=== PATIENT | male | born 1950 | race Caucasian/White ===

== ENCOUNTER 2020-12-29 19:43 | Inpatient (IN) | payer OTHER ==
[2020-12-29 21:18] LABS: BASO % 1.3 % (0-2.0); EOS % 2.4 % (0-4.5); HEMOGLOBIN 14.9 GM/dL (11.7-16.9); LYMPH % 33.8 % (8-40); MCHC 35.5 g/dl (32.0-35.9); MEAN CELL VOLUME 90.4 fl (80-96); MONO % 7.6 % (3.8-10.2); NEUT % 54.9 % (42.8-82.8); PLATELET COUNT 259 10^3/uL (134-434); RBC 4.65 M/mm3 (4.00-5.60); RDW 12.7 % (11.9-15.9); WHITE BLOOD COUNT 9.7 K/mm3 (4.0-10.0)
[2020-12-29 21:31] LABS: INR 1.07 (0.83-1.09); PROTHROMBIN TIME (PATIENT) 12.9 SEC (9.7-13.0)
[2020-12-29 21:34] LABS: ACTIVATED PTT 28.6 SECONDS (25.2-36.5)
[2020-12-29 21:46] LABS: BLOOD UREA NITROGEN 16.3 mg/dL (7-18); CALCIUM 9.4 mg/dL (8.5-10.1)
[2020-12-29 21:47] LABS: ALBUMIN 4.1 g/dl (3.4-5.0)
[2020-12-29 21:49] LABS: CREATININE 1.1 mg/dL (0.55-1.3)
[2020-12-29 21:51] LABS: BILIRUBIN,TOTAL 0.3 mg/dL (0.2-1); TOT PROT 8.2 g/dl (6.4-8.2)
[2020-12-29] MEDS ORDERED: ENOXAPARIN NA (PORCINE) 40 MG/0.4 ML DISP.SYRIN SQ ONE (22:42)
[2020-12-29] MEDS ORDERED: ENOXAPARIN NA (PORCINE) 100 MG/1 ML DISP.SYRIN SQ ONE (22:53)
[2020-12-30] MEDS ORDERED: HEPARIN NA (PORCINE) 5,000 UNITS/ML 1ML VIAL IVPUSH ONE (00:21)
[2020-12-30] MEDS ORDERED: HEPARIN NA (PORCINE) 5,000 UNITS/ML 1ML VIAL IVPUSH PRN ×2 (00:21)
[2020-12-30] MEDS ORDERED: HEPARIN INFUSION - 25,000 UNITS/500 ML INFUS.BAG IVPB SCH ×2 (00:30→14:15)
[2020-12-30 07:15] LABS: BASO % 0.9 % (0-2.0); HEMOGLOBIN 13.6 GM/dL (11.7-16.9); LYMPH % 34.5 % (8-40); MCH 32.2 pg (25.7-33.7); MCHC 35.7 g/dl (32.0-35.9); MEAN CELL VOLUME 90.3 fl (80-96); MEAN PLT VOLUME 10.5 fl (7.5-11.1); MONO % 6.7 % (3.8-10.2); NEUT % 54.9 % (42.8-82.8); PLATELET COUNT 226 10^3/uL (134-434); RBC 4.21 M/mm3 (4.00-5.60); RDW 12.5 % (11.9-15.9); WHITE BLOOD COUNT 9.6 K/mm3 (4.0-10.0)
[2020-12-30 07:54] LABS: ALBUMIN 3.5 g/dl (3.4-5.0); BILIRUBIN,TOTAL 0.5 mg/dL (0.2-1); BLOOD UREA NITROGEN 14.8 mg/dL (7-18); CALCIUM 8.9 mg/dL (8.5-10.1); CREATININE 0.8 mg/dL (0.55-1.3); MAGNESIUM 1.9 mg/dL (1.8-2.4); N-TERMINAL BNP 311.9 pg/ml (5-125); PHOSPHOROUS 2.8 mg/dL (2.5-4.9); TOT PROT 7.1 g/dl (6.4-8.2)
[2020-12-30] MEDS: PHENYTOIN NA EXTENDED 100 MG CAPSULE (FP) PO SCH (10:08)
[2020-12-30] MEDS: MUPIROCIN 2% TOPICAL OINTMENT FOR DECOLONIZATION NS SCH ×2 (10:34→22:27)
[2020-12-30] MEDS ORDERED: SODIUM CHLORIDE IVPB ONE (12:15)
[2020-12-30] MEDS ORDERED: ALTEPLASE 50MG 50 MG in SODIUM CHLORIDE 500 ML IVPB ONE (12:15)
[2020-12-30] MEDS ORDERED: ALTEPLASE IVPB ONE (12:15)
[2020-12-30] MEDS: HEPARIN INFUSION - 25,000 UNITS/500 ML INFUS.BAG IVPB SCH (14:15)
[2020-12-30] MEDS ORDERED: LABETALOL HCL 5 MG/1 ML (100MG/20 ML VIAL) IVPUSH PRN (20:07)
[2020-12-30] MEDS ORDERED: ACETAMINOPHEN 325 MG TABLET (FP) PO PRN (20:08)
[2020-12-30] MEDS ORDERED: ACETAMINOPHEN 1000 MG/100 ML VIAL (NON FORMULARY) IVPB ONE (22:00)
[2020-12-30] MEDS: CHLORHEXIDINE GLUCONATE 4% CLEANSER FOR DECOLONIZATION TP SCH (22:27)
[2020-12-31 07:31] LABS: BASO % 0.9 % (0-2.0); EOS % 2.1 % (0-4.5); HEMATOCRIT 40.9 % (35.4-49); HEMOGLOBIN 14.4 GM/dL (11.7-16.9); LYMPH % 22.9 % (8-40); MCH 31.8 pg (25.7-33.7); MCHC 35.2 g/dl (32.0-35.9); MEAN CELL VOLUME 90.6 fl (80-96); MEAN PLT VOLUME 9.9 fl (7.5-11.1); MONO % 7.9 % (3.8-10.2); NEUT % 66.2 % (42.8-82.8); PLATELET COUNT 207 10^3/uL (134-434); RBC 4.52 M/mm3 (4.00-5.60); RDW 12.7 % (11.9-15.9); WHITE BLOOD COUNT 8.3 K/mm3 (4.0-10.0)
[2020-12-31 07:52] LABS: ALBUMIN 3.5 g/dl (3.4-5.0); BLOOD UREA NITROGEN 20.2 mg/dL (7-18); CALCIUM 8.9 mg/dL (8.5-10.1); MAGNESIUM 2.1 mg/dL (1.8-2.4)
[2020-12-31 07:55] LABS: CREATININE 0.8 mg/dL (0.55-1.3); PHOSPHOROUS 2.9 mg/dL (2.5-4.9)
[2020-12-31 07:57] LABS: BILIRUBIN,TOTAL 0.4 mg/dL (0.2-1)
[2020-12-31] MEDS: PHENYTOIN NA EXTENDED 100 MG CAPSULE (FP) PO SCH (09:20)
[2020-12-31] MEDS: MUPIROCIN 2% TOPICAL OINTMENT FOR DECOLONIZATION NS SCH ×2 (09:28→21:34)
[2020-12-31] MEDS: INSULIN SLIDING SCALE (NOVOLOG) 1 VIAL SQ SCH ×3 (12:21→21:35)
[2020-12-31 13:37] VITALS: BMI 27.3
[2020-12-31] MEDS ORDERED: HEPARIN NA (PORCINE) 5,000 UNITS/ML 1ML VIAL IVPUSH PRN ×4 (15:52→17:16)
[2020-12-31] MEDS: HEPARIN INFUSION - 25,000 UNITS/500 ML INFUS.BAG IVPB SCH ×2 (16:00→17:54)
[2020-12-31] MEDS ORDERED: HEPARIN INFUSION - 500 ML IV SCH (17:30)
[2020-12-31] MEDS ORDERED: PT OWN MED DRAWER 7, Y5N ONE (21:21)
[2020-12-31] MEDS: CHLORHEXIDINE GLUCONATE 4% CLEANSER FOR DECOLONIZATION TP SCH (21:34)
[2021-01-01] MEDS: INSULIN SLIDING SCALE (NOVOLOG) 1 VIAL SQ SCH ×3 (06:54→17:03)
[2021-01-01 07:12] LABS: HEMOGLOBIN 14.2 GM/dL (11.7-16.9); MCHC 35.5 g/dl (32.0-35.9); MEAN CELL VOLUME 90.2 fl (80-96); MEAN PLT VOLUME 10.2 fl (7.5-11.1); PLATELET COUNT 185 10^3/uL (134-434); RBC 4.44 M/mm3 (4.00-5.60); RDW 12.5 % (11.9-15.9); WHITE BLOOD COUNT 9.1 K/mm3 (4.0-10.0)
[2021-01-01 07:41] LABS: ALBUMIN 3.4 g/dl (3.4-5.0); BLOOD UREA NITROGEN 20.5 mg/dL (7-18); CALCIUM 8.8 mg/dL (8.5-10.1)
[2021-01-01 07:42] LABS: MAGNESIUM 1.9 mg/dL (1.8-2.4)
[2021-01-01 07:44] LABS: CREATININE 0.9 mg/dL (0.55-1.3); PHOSPHOROUS 2.9 mg/dL (2.5-4.9)
[2021-01-01 07:45] LABS: BILIRUBIN,TOTAL 0.6 mg/dL (0.2-1); TOT PROT 6.9 g/dl (6.4-8.2)
[2021-01-01] MEDS: PHENYTOIN NA EXTENDED 100 MG CAPSULE (FP) PO SCH (10:06)
[2021-01-01] MEDS: MUPIROCIN 2% TOPICAL OINTMENT FOR DECOLONIZATION NS SCH (10:26)
[2021-01-01] MEDS: APIXABAN 5 MG TABLET PO SCH ×2 (11:06→11:07)
[2021-01-01] MEDS: HEPARIN INFUSION - 25,000 UNITS/500 ML INFUS.BAG IVPB SCH (11:29)
[2021-01-01 15:26] VITALS: BP 126/76; PULSE 76; TEMP 98.1
== END 2021-01-01 17:20 | disposition home or self-care (01) | DRG 164 ==
LOC: JER 19:43 → JERBED 22:33 → JICU 12-30 01:42
PROVIDERS: ADMIT Internal Medicine; ATTEND Internal Medicine
PROC: 02CR3ZZ Extirpation of Matter from Left Pulmonary Artery, Percutaneous Approach (ICD-10-PCS; principal; 2020-12-31)
PROC: 02CQ3ZZ Extirpation of Matter from Right Pulmonary Artery, Percutaneous Approach (ICD-10-PCS; 2020-12-31)
PROC: 3E03317 Introduction of Other Thrombolytic into Peripheral Vein, Percutaneous Approach (ICD-10-PCS; 2020-12-31)
DX: I26.02 Saddle embolus of pulmonary artery with acute cor pulmonale (principal); I82.4Z2 Acute embolism and thrombosis of unspecified deep veins of left distal lower extremity; I10 Essential (primary) hypertension; E78.5 Hyperlipidemia, unspecified; G40.909 Epilepsy, unspecified, not intractable, without status epilepticus; E11.65 Type 2 diabetes mellitus with hyperglycemia; I51.89 Other ill-defined heart diseases
CPT/HCPCS: 36415; 37184; 37187; 37212; 71275-TC; 75746-TC-FY; 80053; 82272; 82550; 82962; 83735; 83880; 84100; 84484; 85025; 85027; 85610; 85730; 93005; 93010; 93306-TC; 93970-TC; 97116-GP; 97161-GP; 99285-25; C9803; J0131; J1644; J2997; Q9967; U0003; U0005

== ENCOUNTER 2024-01-18 10:48 | Observation (INO) | payer OTHER ==
[2024-01-18] MEDS ORDERED: AMPICILLIN NA/SULBACTAM NA 3 GM/100 ML BAG IVPB ONE (11:47)
[2024-01-18 12:04] LABS: BASO % 0.8 % (0-2.0); EOS % 2.2 % (0-4.5); HEMATOCRIT 36.2 % (35.4-49); HEMOGLOBIN 12.4 GM/dL (11.7-16.9); MCH 31.7 pg (25.7-33.7); MCHC 34.3 g/dl (32.0-35.9); MEAN CELL VOLUME 92.4 fl (80-96); MEAN PLT VOLUME 9.5 fl (7.5-11.1); PLATELET COUNT 238 10^3/uL (134-434); RBC 3.92 M/mm3 (4.00-5.60); WHITE BLOOD COUNT 8.2 K/mm3 (4.0-10.0)
[2024-01-18] MEDS: AMPICILLIN NA/SULBACTAM NA 3 GM in SODIUM CHLORIDE 100 ML IVPB ONE (12:08)
[2024-01-18] MEDS: VANCOMYCIN HCL 1,500 MG in DEXTROSE 5%-WATER - 500 ML IVPB ONE (12:08)
[2024-01-18 12:27] LABS: POTASSIUM 4.7 mmol/L (3.5-5.1)
[2024-01-18 12:28] LABS: CALCIUM 9.4 mg/dL (8.5-10.1)
[2024-01-18 12:29] LABS: ALBUMIN 3.5 g/dl (3.4-5.0); BLOOD UREA NITROGEN 23.6 mg/dL (7-18)
[2024-01-18 12:34] LABS: BILIRUBIN,TOTAL 0.3 mg/dL (0.2-1); TOT PROT 7.1 g/dl (6.4-8.2)
[2024-01-18 12:45] LABS: ERYTHROCYTE SEDIMENTATION RATE 34 mm/hr (0-20)
[2024-01-18] MEDS: VANCOMYCIN PREMIX 1.5 GM 1,500 MG/300 ML BAG IVPB ONE (13:10)
[2024-01-18] MEDS: SODIUM CHLORIDE 1,000 ML IV STA (17:03)
[2024-01-18] MEDS: INSULIN ASPART SLIDING SCALE (NOVOLOG) 1 VIAL SQ SCH (17:04)
[2024-01-18] MEDS ORDERED: ceFAZolin SODIUM 1 GM VIAL ONE (18:08)
[2024-01-18] MEDS: CEFAZOLIN SODIUM 2 GM in DEXTROSE 5%-WATER 100 ML IVPB SCH (18:15)
[2024-01-18] MEDS ORDERED: APIXABAN 2.5 MG TABLET ONE (20:57)
[2024-01-18] MEDS ORDERED: PHENYTOIN NA EXTENDED 100 MG CAPSULE (FP) ONE (20:57)
[2024-01-18] MEDS: PHENYTOIN NA EXTENDED 100 MG CAPSULE (FP) PO SCH (21:00)
[2024-01-18] MEDS: APIXABAN 2.5 MG TABLET PO SCH (21:00)
[2024-01-19] MEDS: ACETAMINOPHEN 1000 MG/100 ML BAG IVPB PRN (00:42)
[2024-01-19 01:34] VITALS: BMI 27.1
[2024-01-19] MEDS ORDERED: PHENYTOIN NA EXTENDED 100 MG CAPSULE (FP) PO SCH (10:00)
[2024-01-19] MEDS: amLODIPine BESYLATE 5 MG TABLET (FP) PO SCH (10:03)
[2024-01-19] MEDS: PHENYTOIN NA EXTENDED 100 MG CAPSULE (FP) PO SCH (10:06)
[2024-01-19 10:11] LABS: HEMOGLOBIN 13.2 GM/dL (11.7-16.9); MCH 31.9 pg (25.7-33.7); MCHC 34.7 g/dl (32.0-35.9); MEAN CELL VOLUME 91.9 fl (80-96); MEAN PLT VOLUME 9.9 fl (7.5-11.1); PLATELET COUNT 264 10^3/uL (134-434); RBC 4.14 M/mm3 (4.00-5.60); WHITE BLOOD COUNT 8.1 K/mm3 (4.0-10.0)
[2024-01-19 10:23] LABS: POTASSIUM 4.6 mmol/L (3.5-5.1)
[2024-01-19 10:27] LABS: ALBUMIN 3.5 g/dl (3.4-5.0); BLOOD UREA NITROGEN 17.3 mg/dL (7-18); CALCIUM 9.7 mg/dL (8.5-10.1)
[2024-01-19 10:32] LABS: BILIRUBIN,TOTAL 0.4 mg/dL (0.2-1); TOT PROT 7.2 g/dl (6.4-8.2)
[2024-01-19] MEDS: INSULIN (LEVEMIR) 100 UNITS/ML UNITS SQ SCH (21:30)
[2024-01-20 10:50] VITALS: BP 146/69; PULSE 77; RESP 20; TEMP 98.2
[2024-01-20 12:21] LABS: BASO % 0.7 % (0-2.0); EOS % 3.8 % (0-4.5); HEMOGLOBIN 13.1 GM/dL (11.7-16.9); LYMPH % 23.1 % (8-40); MCH 31.2 pg (25.7-33.7); MCHC 33.7 g/dl (32.0-35.9); MEAN CELL VOLUME 92.8 fl (80-96); MEAN PLT VOLUME 9.8 fl (7.5-11.1); MONO % 7.2 % (3.8-10.2); NEUT % 65.2 % (42.8-82.8); PLATELET COUNT 277 10^3/uL (134-434); RDW 13.4 % (11.9-15.9); WHITE BLOOD COUNT 9.4 K/mm3 (4.0-10.0)
[2024-01-20 12:47] LABS: POTASSIUM 4.5 mmol/L (3.5-5.1)
[2024-01-20 12:49] LABS: CALCIUM 9.3 mg/dL (8.5-10.1)
[2024-01-20 12:50] LABS: ALBUMIN 3.3 g/dl (3.4-5.0); BLOOD UREA NITROGEN 23.6 mg/dL (7-18); MAGNESIUM 2.1 mg/dL (1.8-2.4)
[2024-01-20 12:53] LABS: CREATININE 1.1 mg/dL (0.55-1.3); PHOSPHOROUS 3.2 mg/dL (2.5-4.9)
[2024-01-20 12:54] LABS: BILIRUBIN,TOTAL 0.2 mg/dL (0.2-1)
[2024-01-20 12:55] LABS: TOT PROT 6.9 g/dl (6.4-8.2)
== END 2024-01-20 17:02 | disposition home or self-care (01) ==
LOC: JER 10:48 → INTOOBSV 14:16 → UNDOADMOB 14:16 → JERBED 14:16 → J5S 01-19 00:26 → JERBED 01-19 09:40 → J5S 01-19 09:40
PROVIDERS: ADMIT Internal Medicine; ATTEND Internal Medicine
PROC: 3E033NZ Introduction of Analgesics, Hypnotics, Sedatives into Peripheral Vein, Percutaneous Approach (ICD-10-PCS; principal; 2024-01-19)
PROC: 3E03329 Introduction of Other Anti-infective into Peripheral Vein, Percutaneous Approach (ICD-10-PCS; 2024-01-19)
PROC: 3E013VG Introduction of Insulin into Subcutaneous Tissue, Percutaneous Approach (ICD-10-PCS; 2024-01-19)
PROC: 3E0337Z Introduction of Electrolytic and Water Balance Substance into Peripheral Vein, Percutaneous Approach (ICD-10-PCS; 2024-01-19)
DX: E11.622 Type 2 diabetes mellitus with other skin ulcer (principal); L03.115 Cellulitis of right lower limb; I10 Essential (primary) hypertension; E78.5 Hyperlipidemia, unspecified; R56.9 Unspecified convulsions; Z86.718 Personal history of other venous thrombosis and embolism; M19.90 Unspecified osteoarthritis, unspecified site; Z87.891 Personal history of nicotine dependence; Z79.01 Long term (current) use of anticoagulants; Z88.5 Allergy status to narcotic agent; Z90.49 Acquired absence of other specified parts of digestive tract; L98.499 Non-pressure chronic ulcer of skin of other sites with unspecified severity
CPT/HCPCS: 0241U-QW; 36415; 73660-TC-FY; 73718-TC-RT; 78315-TC; 80053; 80061; 82962; 83036; 83735; 84100; 85025; 85027; 85651; 86140; 93926-TC; 96361; 96365; 96367; 96372; 96375; 99285-25; A9503; G0378; J0131

== ENCOUNTER 2024-01-23 11:04 | Inpatient (IN) | payer OTHER ==
[2024-01-23 12:04] LABS: BASO % 0.5 % (0-2.0); EOS % 2.4 % (0-4.5); HEMATOCRIT 40.3 % (35.4-49); HEMOGLOBIN 13.7 GM/dL (11.7-16.9); MCH 31.3 pg (25.7-33.7); MEAN CELL VOLUME 91.9 fl (80-96); MEAN PLT VOLUME 9.3 fl (7.5-11.1); MONO % 7.1 % (3.8-10.2); PLATELET COUNT 300 10^3/uL (134-434); RBC 4.39 M/mm3 (4.00-5.60); RDW 12.8 % (11.9-15.9); WHITE BLOOD COUNT 8.5 K/mm3 (4.0-10.0)
[2024-01-23 12:07] LABS: INR 1.02 (0.83-1.09); PROTHROMBIN TIME (PATIENT) 11.5 SEC (9.7-13.0)
[2024-01-23 12:09] LABS: ACTIVATED PTT 29.7 SECONDS (25.2-36.5)
[2024-01-23 12:43] LABS: POTASSIUM 4.5 mmol/L (3.5-5.1)
[2024-01-23 12:46] LABS: ALBUMIN 3.8 g/dl (3.4-5.0); MAGNESIUM 2.2 mg/dL (1.8-2.4)
[2024-01-23 12:49] LABS: CREATININE 1.1 mg/dL (0.55-1.3); PHOSPHOROUS 3.1 mg/dL (2.5-4.9)
[2024-01-23 12:50] LABS: BILIRUBIN,TOTAL 0.2 mg/dL (0.2-1); TOT PROT 7.7 g/dl (6.4-8.2)
[2024-01-23] MEDS ORDERED: MIDAZOLAM HCL 2 MG/2 ML SINGLE DOSE VIAL ONE (15:24)
[2024-01-23] MEDS: LIDOCAINE HCL 1%, 10 MG/ML (50 mL VIAL) INF ONE (15:32)
[2024-01-23] MEDS: BUPIVACAINE HCL/PF 0.5% (5MG/ML) 10 ML VIAL IJ ONE (15:32)
[2024-01-23] MEDS ORDERED: PROPOFOL 20 ML ONE (15:39)
[2024-01-23] MEDS: ceFAZolin SODIUM 1 GM VIAL IVPB ONE (15:42)
[2024-01-23] MEDS ORDERED: ONDANSETRON 4 MG/2 ML VIAL IVPUSH PRN ×2 (15:56→16:28)
[2024-01-23] MEDS ORDERED: LACTATED RINGERS SOLUTION 1,000 ML IV SCH (16:00)
[2024-01-23] MEDS ORDERED: INSULIN ASPART SLIDING SCALE (NOVOLOG) 1 VIAL SQ SCH (16:30)
[2024-01-23] MEDS: CEFTRIAXONE 2 GM in DEXTROSE 5%-WATER 100 ML IVPB SCH (16:50)
[2024-01-23] MEDS: INSULIN ASPART SLIDING SCALE (NOVOLOG) 1 VIAL SQ SCH (17:34)
[2024-01-23 19:01] VITALS: BMI 26.0
[2024-01-23] MEDS: PHENYTOIN NA EXTENDED 100 MG CAPSULE (FP) PO SCH (21:35)
[2024-01-23] MEDS ORDERED: PHENYTOIN NA EXTENDED 100 MG CAPSULE (FP) PO SCH (22:00)
[2024-01-24] MEDS: ACETAMINOPHEN 500 MG TABLET (FP) PO PRN (06:05)
[2024-01-24] MEDS: APIXABAN 2.5 MG TABLET PO SCH (09:50)
[2024-01-24] MEDS: amLODIPine BESYLATE 5 MG TABLET (FP) PO SCH (09:50)
[2024-01-24] MEDS ORDERED: APIXABAN 2.5 MG TABLET PO SCH (10:00)
[2024-01-24] MEDS ORDERED: amLODIPine BESYLATE 5 MG TABLET (FP) PO SCH (10:00)
[2024-01-25 10:04] LABS: BASO % 0.5 % (0-2.0); EOS % 3.2 % (0-4.5); HEMATOCRIT 41.6 % (35.4-49); HEMOGLOBIN 14.2 GM/dL (11.7-16.9); LYMPH % 16.3 % (8-40); MCH 31.6 pg (25.7-33.7); MCHC 34.2 g/dl (32.0-35.9); MEAN CELL VOLUME 92.3 fl (80-96); MONO % 7.4 % (3.8-10.2); NEUT % 72.6 % (42.8-82.8); PLATELET COUNT 299 10^3/uL (134-434); RBC 4.51 M/mm3 (4.00-5.60); RDW 12.9 % (11.9-15.9); WHITE BLOOD COUNT 11.3 K/mm3 (4.0-10.0)
[2024-01-25 10:15] LABS: POTASSIUM 4.4 mmol/L (3.5-5.1)
[2024-01-25 10:23] LABS: ALBUMIN 3.8 g/dl (3.4-5.0); CALCIUM 9.8 mg/dL (8.5-10.1)
[2024-01-25 10:24] LABS: BLOOD UREA NITROGEN 19.7 mg/dL (7-18)
[2024-01-25 10:26] LABS: BILIRUBIN,TOTAL 0.4 mg/dL (0.2-1); TOT PROT 7.8 g/dl (6.4-8.2)
[2024-01-26 10:10] LABS: BASO % 0.8 % (0-2.0); EOS % 3.6 % (0-4.5); HEMATOCRIT 38.1 % (35.4-49); LYMPH % 19.6 % (8-40); MCH 31.6 pg (25.7-33.7); MCHC 34.2 g/dl (32.0-35.9); MEAN CELL VOLUME 92.3 fl (80-96); MEAN PLT VOLUME 9.9 fl (7.5-11.1); MONO % 7.9 % (3.8-10.2); NEUT % 68.1 % (42.8-82.8); PLATELET COUNT 275 10^3/uL (134-434); RBC 4.13 M/mm3 (4.00-5.60); WHITE BLOOD COUNT 10.7 K/mm3 (4.0-10.0)
[2024-01-26 10:23] LABS: POTASSIUM 4.6 mmol/L (3.5-5.1)
[2024-01-26 10:27] LABS: CALCIUM 9.3 mg/dL (8.5-10.1)
[2024-01-26 10:28] LABS: ALBUMIN 3.6 g/dl (3.4-5.0); BLOOD UREA NITROGEN 18.7 mg/dL (7-18)
[2024-01-26 10:32] LABS: BILIRUBIN,TOTAL 0.2 mg/dL (0.2-1); TOT PROT 7.2 g/dl (6.4-8.2)
[2024-01-26 14:45] VITALS: RESP 18
[2024-01-27 10:00] LABS: BASO % 0.4 % (0-2.0); EOS % 2.1 % (0-4.5); HEMOGLOBIN 13.1 GM/dL (11.7-16.9); LYMPH % 15.1 % (8-40); MCH 31.5 pg (25.7-33.7); MCHC 34.6 g/dl (32.0-35.9); MEAN CELL VOLUME 91.1 fl (80-96); MEAN PLT VOLUME 10.1 fl (7.5-11.1); MONO % 7.4 % (3.8-10.2); PLATELET COUNT 268 10^3/uL (134-434); RBC 4.17 M/mm3 (4.00-5.60); RDW 12.9 % (11.9-15.9); WHITE BLOOD COUNT 11.5 K/mm3 (4.0-10.0)
[2024-01-27 10:12] LABS: POTASSIUM 4.7 mmol/L (3.5-5.1)
[2024-01-27 10:17] LABS: ALBUMIN 3.8 g/dl (3.4-5.0); CALCIUM 9.7 mg/dL (8.5-10.1)
[2024-01-27 10:18] LABS: BLOOD UREA NITROGEN 19.1 mg/dL (7-18)
[2024-01-27 10:23] LABS: BILIRUBIN,TOTAL 0.4 mg/dL (0.2-1); TOT PROT 7.4 g/dl (6.4-8.2)
[2024-01-27] MEDS ORDERED: INSULIN ASPART SLIDING SCALE (NOVOLOG) 1 VIAL SQ ONE (11:14)
[2024-01-27 13:56] LABS: URIC ACID 5.2 mg/dL (2.6-7.2)
[2024-01-27] MEDS: LIDOCAINE 5% TOPICAL PATCH TP ONE (14:05)
[2024-01-27] MEDS: AMOX TR/POT CLAV 875MG/125MG TABLETS (FP) PO SCH (14:07)
[2024-01-27] MEDS: LIDOCAINE PATCH REMOVAL MC SCH ×2 (21:38)
[2024-01-28 07:09] VITALS: BP 137/63; PULSE 83; TEMP 98.4
[2024-01-28 07:34] LABS: BASO % 0.7 % (0-2.0); EOS % 2.2 % (0-4.5); HEMATOCRIT 37.8 % (35.4-49); HEMOGLOBIN 13.2 GM/dL (11.7-16.9); LYMPH % 10.1 % (8-40); MCH 31.8 pg (25.7-33.7); MCHC 34.9 g/dl (32.0-35.9); MEAN CELL VOLUME 91.3 fl (80-96); MEAN PLT VOLUME 9.7 fl (7.5-11.1); MONO % 8.6 % (3.8-10.2); NEUT % 78.4 % (42.8-82.8); PLATELET COUNT 263 10^3/uL (134-434); RBC 4.14 M/mm3 (4.00-5.60); WHITE BLOOD COUNT 10.5 K/mm3 (4.0-10.0)
[2024-01-28 07:52] LABS: POTASSIUM 4.6 mmol/L (3.5-5.1)
[2024-01-28 07:57] LABS: CALCIUM 9.7 mg/dL (8.5-10.1)
[2024-01-28 07:59] LABS: ALBUMIN 3.4 g/dl (3.4-5.0); BLOOD UREA NITROGEN 20.4 mg/dL (7-18)
[2024-01-28 08:02] LABS: BILIRUBIN,TOTAL 0.3 mg/dL (0.2-1)
[2024-01-28] MEDS: LIDOCAINE 5% TOPICAL PATCH TP SCH (09:06)
== END 2024-01-28 11:30 | disposition home or self-care (01) | DRG 988 ==
LOC: JER 11:04 → JERBED 12:00 → OBSVTOIN 14:50 → J8W 17:22
PROVIDERS: ADMIT Internal Medicine; ATTEND Nurse Practitioner Family
PROC: 0QBQ3ZX Excision of Right Toe Phalanx, Percutaneous Approach, Diagnostic (ICD-10-PCS; principal; 2024-01-23 13:30)
DX: E11.69 Type 2 diabetes mellitus with other specified complication (principal); M86.8X7 Other osteomyelitis, ankle and foot; I10 Essential (primary) hypertension; E78.5 Hyperlipidemia, unspecified; Z79.84 Long term (current) use of oral hypoglycemic drugs; Z86.718 Personal history of other venous thrombosis and embolism; Z86.711 Personal history of pulmonary embolism; M10.9 Gout, unspecified; G40.909 Epilepsy, unspecified, not intractable, without status epilepticus; M25.461 Effusion, right knee; M17.11 Unilateral primary osteoarthritis, right knee; L03.031 Cellulitis of right toe; B96.89 Other specified bacterial agents as the cause of diseases classified elsewhere
CPT/HCPCS: 36415; 73564-TC-RT-FY; 73630-TC-RT-FY; 80053; 82962; 83036; 83735; 84100; 84550; 85025; 85610; 85651; 85730; 86140; 86850; 86900; 86901; 87070; 87075; 87186; 87205; 93005; 93010; 94760; 97116-GP; 97161-GP; 99285-25; G0378

== ENCOUNTER 2024-02-01 11:28 | Inpatient (IN) | payer OTHER ==
[2024-02-01 11:32] VITALS: BMI 26.2
[2024-02-01 13:24] LABS: BASO % 1.1 % (0-2.0); EOS % 2.4 % (0-4.5); HEMATOCRIT 35.5 % (35.4-49); HEMOGLOBIN 12.2 GM/dL (11.7-16.9); LYMPH % 22.1 % (8-40); MCH 31.5 pg (25.7-33.7); MCHC 34.5 g/dl (32.0-35.9); MEAN CELL VOLUME 91.5 fl (80-96); MEAN PLT VOLUME 9.7 fl (7.5-11.1); MONO % 8.4 % (3.8-10.2); PLATELET COUNT 309 10^3/uL (134-434); RBC 3.88 M/mm3 (4.00-5.60); RDW 12.9 % (11.9-15.9); WHITE BLOOD COUNT 8.2 K/mm3 (4.0-10.0)
[2024-02-01 13:32] LABS: INR 1.09 (0.83-1.09); PROTHROMBIN TIME (PATIENT) 12.5 SEC (9.7-13.0)
[2024-02-01 13:46] LABS: CALCIUM 9.9 mg/dL (8.5-10.1)
[2024-02-01 13:47] LABS: ALBUMIN 3.5 g/dl (3.4-5.0)
[2024-02-01 13:50] LABS: CREATININE 0.9 mg/dL (0.55-1.3)
[2024-02-01 13:51] LABS: BILIRUBIN,TOTAL 0.2 mg/dL (0.2-1); TOT PROT 7.3 g/dl (6.4-8.2)
[2024-02-01 17:18] LABS: HIV INTERPRETATION NEGATIVE (NEGATIVE)
[2024-02-01] MEDS: INSULIN ASPART SLIDING SCALE (NOVOLOG) 1 VIAL SQ SCH (19:06)
[2024-02-01 21:06] LABS: INR 1.02 (0.83-1.09); PROTHROMBIN TIME (PATIENT) 11.7 SEC (9.7-13.0)
[2024-02-01] MEDS: PHENYTOIN NA EXTENDED 100 MG CAPSULE (FP) PO SCH (21:52)
[2024-02-02] MEDS ORDERED: BUPIVACAINE HCL/PF 0.5% (5MG/ML) 10 ML VIAL ONE (07:16)
[2024-02-02] MEDS ORDERED: GENTAMICIN SO4 80 MG/2 ML VIAL ONE (07:16)
[2024-02-02] MEDS ORDERED: LIDOCAINE HCL 1%, 10 MG/ML (20ML VIAL) ONE (07:16)
[2024-02-02] MEDS ORDERED: PROPOFOL 20 ML ONE (07:41)
[2024-02-02] MEDS ORDERED: MIDAZOLAM HCL 2 MG/2 ML SINGLE DOSE VIAL ONE (07:41)
[2024-02-02] MEDS: LIDOCAINE HCL 1%, 10 MG/ML (20ML VIAL) NR ONE (07:46)
[2024-02-02] MEDS: BUPIVACAINE HCL/PF 0.5% (5 MG/ML) 30 ML VIAL IJ ONE (07:46)
[2024-02-02] MEDS: ceFAZolin SODIUM 1 GM VIAL IVPB ONE (07:51)
[2024-02-02] MEDS ORDERED: ONDANSETRON 4 MG/2 ML VIAL IVPUSH PRN (08:26)
[2024-02-02 09:42] LABS: BASO % 0.8 % (0-2.0); EOS % 2.9 % (0-4.5); HEMATOCRIT 34.6 % (35.4-49); LYMPH % 22.3 % (8-40); MCH 31.7 pg (25.7-33.7); MCHC 34.7 g/dl (32.0-35.9); MEAN CELL VOLUME 91.5 fl (80-96); MEAN PLT VOLUME 9.4 fl (7.5-11.1); MONO % 7.9 % (3.8-10.2); NEUT % 66.1 % (42.8-82.8); PLATELET COUNT 305 10^3/uL (134-434); RBC 3.78 M/mm3 (4.00-5.60); RDW 12.7 % (11.9-15.9); WHITE BLOOD COUNT 7.5 K/mm3 (4.0-10.0)
[2024-02-02] MEDS: PHENYTOIN NA EXTENDED 100 MG CAPSULE (FP) PO SCH (09:54)
[2024-02-02] MEDS: amLODIPine BESYLATE 5 MG TABLET (FP) PO SCH (09:54)
[2024-02-02 09:58] LABS: POTASSIUM 4.4 mmol/L (3.5-5.1)
[2024-02-02 09:59] LABS: ALBUMIN 3.2 g/dl (3.4-5.0)
[2024-02-02 10:00] LABS: BLOOD UREA NITROGEN 21.5 mg/dL (7-18); CALCIUM 9.7 mg/dL (8.5-10.1)
[2024-02-02] MEDS ORDERED: amLODIPine BESYLATE 5 MG TABLET (FP) PO SCH (10:00)
[2024-02-02 10:02] LABS: CREATININE 0.9 mg/dL (0.55-1.3)
[2024-02-02 10:05] LABS: BILIRUBIN,TOTAL 0.4 mg/dL (0.2-1); TOT PROT 6.8 g/dl (6.4-8.2)
[2024-02-02] MEDS: INSULIN ASPART SLIDING SCALE (NOVOLOG) 1 VIAL SQ SCH (12:10)
[2024-02-02] MEDS: CEFTRIAXONE 2 GM in DEXTROSE 5%-WATER 100 ML IVPB SCH (12:57)
[2024-02-02] MEDS: LACTATED RINGERS SOLUTION 1,000 ML IV SCH (16:50)
[2024-02-03 09:38] LABS: BASO % 0.8 % (0-2.0); EOS % 3.3 % (0-4.5); HEMATOCRIT 35.2 % (35.4-49); HEMOGLOBIN 12.4 GM/dL (11.7-16.9); LYMPH % 18.4 % (8-40); MCH 31.9 pg (25.7-33.7); MCHC 35.1 g/dl (32.0-35.9); MEAN CELL VOLUME 90.9 fl (80-96); MEAN PLT VOLUME 9.6 fl (7.5-11.1); NEUT % 70.5 % (42.8-82.8); PLATELET COUNT 314 10^3/uL (134-434); RBC 3.87 M/mm3 (4.00-5.60); RDW 12.8 % (11.9-15.9); WHITE BLOOD COUNT 9.3 K/mm3 (4.0-10.0)
[2024-02-03] MEDS: APIXABAN 2.5 MG TABLET PO SCH (10:02)
[2024-02-03 10:10] LABS: POTASSIUM 4.6 mmol/L (3.5-5.1)
[2024-02-03 10:16] LABS: ALBUMIN 3.2 g/dl (3.4-5.0); CALCIUM 9.7 mg/dL (8.5-10.1)
[2024-02-03 10:17] LABS: BLOOD UREA NITROGEN 18.6 mg/dL (7-18); MAGNESIUM 2.2 mg/dL (1.8-2.4)
[2024-02-03 10:20] LABS: CREATININE 0.9 mg/dL (0.55-1.3)
[2024-02-03 10:21] LABS: BILIRUBIN,TOTAL 0.5 mg/dL (0.2-1)
[2024-02-03] MEDS ORDERED: INSULIN ASPART SLIDING SCALE (NOVOLOG) 1 VIAL SQ ONE (11:18)
[2024-02-04 09:37] VITALS: RESP 20
[2024-02-04 10:52] LABS: POTASSIUM 4.7 mmol/L (3.5-5.1)
[2024-02-04 10:54] LABS: ALBUMIN 3.3 g/dl (3.4-5.0); BLOOD UREA NITROGEN 23.1 mg/dL (7-18); CALCIUM 9.5 mg/dL (8.5-10.1); MAGNESIUM 2.2 mg/dL (1.8-2.4)
[2024-02-04 10:55] LABS: BASO % 0.8 % (0-2.0); EOS % 3.9 % (0-4.5); HEMATOCRIT 36.2 % (35.4-49); HEMOGLOBIN 12.5 GM/dL (11.7-16.9); LYMPH % 20.6 % (8-40); MCH 31.9 pg (25.7-33.7); MCHC 34.5 g/dl (32.0-35.9); MEAN CELL VOLUME 92.5 fl (80-96); MEAN PLT VOLUME 9.8 fl (7.5-11.1); MONO % 6.5 % (3.8-10.2); NEUT % 68.2 % (42.8-82.8); PLATELET COUNT 322 10^3/uL (134-434); RBC 3.92 M/mm3 (4.00-5.60); RDW 12.4 % (11.9-15.9); WHITE BLOOD COUNT 8.9 K/mm3 (4.0-10.0)
[2024-02-04 10:58] LABS: CREATININE 0.9 mg/dL (0.55-1.3)
[2024-02-04 10:59] LABS: BILIRUBIN,TOTAL 0.2 mg/dL (0.2-1); TOT PROT 7.1 g/dl (6.4-8.2)
[2024-02-04 13:22] VITALS: PULSE 76; TEMP 97.2
[2024-02-04 13:23] VITALS: BP 130/72
== END 2024-02-04 13:33 | disposition home or self-care (01) | DRG 617 ==
LOC: JER 11:28 → JERBED 15:53 → J8W 17:57
PROVIDERS: ADMIT Internal Medicine
PROC: 0Y6R0Z0 Detachment at Right 2nd Toe, Complete, Open Approach (ICD-10-PCS; principal; 2024-02-02 07:30)
DX: E11.69 Type 2 diabetes mellitus with other specified complication (principal); M86.671 Other chronic osteomyelitis, right ankle and foot; E11.42 Type 2 diabetes mellitus with diabetic polyneuropathy; I10 Essential (primary) hypertension; E78.5 Hyperlipidemia, unspecified
CPT/HCPCS: 36415; 71045-TC-FY; 73630-TC-RT-FY; 80053; 82962; 83735; 85025; 85610; 86803; 86850; 86900; 86901; 87389; 88305-TC; 88311-TC; 93005; 93010; 94760; 99285-25